=== PATIENT | male | born 1975 | race Caucasian/White ===

== ENCOUNTER 2019-10-30 10:30 | Emergency (ER) | payer SELFPAY ==
[~2019-10-30] VITALS: Wt 108.9 kg
[~2019-10-30 10:30] MED LIST: AMOXICILLIN500 MG PO; ANAPROX DS550 MG PO; ANUSOL-HC25 MG RC; CATAFLAM50 MG PO; CIPROFLOXACIN500 MG PO; CLARITIN10 MG PO; CLEOCIN HCL150 MG PO; CLEOCIN150 MG; DAYPRO600 M1 PO; EPI EZ PEN1 MG/ML IM; Fioricet 325 MG1 TAB PO; KEFLEX500 MG PO; LOMOTIL 0.025 M1 TAB PO; MEDROL DOSEPAK4 MG PO; MOTRIN800 MG PO; NKHM; PENICILLIN VK500 MG PO; SEPTRA DS 800 M1 TAB PO; SKELAXIN800 MG PO; TOBRADEX 0.1%-0.5 ML OPH; TRAMADOL HCL50 MG PO; ULTRAM50 MG PO; VICODIN 5/500 505 MG PO; VICODIN ES 7501 TAB PO; ZITHROMAX Z PA250 MG PO
[2019-10-30 10:54] VITALS: BP 183/84
[2019-10-30 11:47] LABS: HEMATOCRIT 45.7 % (42.0-52.0); MEAN CORPUSCULAR HGB 27.3 pg (27.0-31.0); MEAN CORPUSCULAR HGB CONC 33.3 g/dl (33.0-37.0); MEAN PLATELET VOLUME 9.9 fl (9.6-12.3); PLATELET COUNT AUTOMATED 341 10*3/uL (130-400); RED BLOOD COUNT 5.57 10*6/uL (4.50-5.90); RED CELL DISTRI WIDTH 12.8 % (0-14.5)
[2019-10-30 11:56] LABS: ACT PARTIAL THROMBO TIME 27.8 SECONDS (20.0-32.1); INTERNATIONAL NORM RATIO 0.9 (2.0-3.5)
[2019-10-30 12:03] LABS: ALBUMIN 3.6 gm/dl (3.1-4.5); ALKALINE PHOSPHATASE 81 U/L (45-117); BUN 9 mg/dl (7-24); CHLORIDE 105 mmol/L (98-107); CREATININE 1.02 mg/dL (0.70-1.30); LIPASE 61 U/L (73-393); SGOT/AST 21 IU/L (3-35); SGPT/ALT 31 U/L (12-78); SODIUM 137 mmol/L (136-145); TOTAL PROTEIN 7.8 gm/dL (6.4-8.2)
[2019-10-30 12:06] LABS: TROPONIN I < 0.015 ng/ml (<0.045)
[2019-10-30 12:11] LABS: PLATELET SUFFICIENCY NORMAL (NORMAL); TOTAL CELLS COUNTED 100 #CELLS
[2019-10-30] MEDS ORDERED: ZITHROMAX250 MG PO (17:22)
== END 2019-10-30 17:44 | disposition home or self-care (01) ==
LOC: ED 10:30
PROVIDERS: Emergency Medicine
DX: J02.0 Streptococcal pharyngitis (principal); F17.200 Nicotine dependence, unspecified, uncomplicated

== ENCOUNTER 2022-08-08 11:09 | Emergency (ER) | payer MEDICAID ==
[~2022-08-08] VITALS: Ht 177.8 cm; Wt 117.9 kg
[~2022-08-08 11:09] MED LIST changes: +ZITHROMAX250 MG PO
[2022-08-08 11:48] VITALS: BP 131/93
[2022-08-08 13:01] LABS: BASO # 0.1 10*3/uL (0.0-0.1); BASO % 0.5 % (0.0-1.0); EOS % 0.3 % (1.0-4.0); HEMATOCRIT 50.5 % (42.0-52.0); LYMPH # 3.5 10*3/uL (1.3-4.4); LYMPH % 26.8 % (27.0-41.0); MEAN CELL VOLUME 83.2 fl (80.0-94.0); MEAN CORPUSCULAR HGB CONC 33.7 g/dl (33.0-37.0); MEAN PLATELET VOLUME 10.2 fl (9.6-12.3); MONO # 1.1 10*3/uL (0.1-1.0); MONO % 8.7 % (3.0-9.0); NEUT # 8.2 10*3/uL (2.3-7.9); NEUT % 63.4 % (47.0-73.0); PLATELET COUNT AUTOMATED 306 10*3/uL (130-400); RED BLOOD COUNT 6.07 10*6/uL (4.50-5.90); RED CELL DISTRI WIDTH 12.7 % (0-14.5); WHITE BLOOD COUNT 12.9 10*3/uL (4.8-10.8)
[2022-08-08 13:20] LABS: ALKALINE PHOSPHATASE 56 U/L (46-116); BUN 12 mg/dl (9-23); CHLORIDE 106 mmol/L (98-107); LIPASE 29 U/L (12-53); POTASSIUM 3.3 mmol/L (3.4-5.1); SGPT/ALT 70 U/L (10-49); TOTAL PROTEIN 8.1 gm/dL (6.0-8.0)
[2022-08-08] MEDS ORDERED: ONDANSETRON4 MG SL (16:03)
== END 2022-08-08 16:12 | disposition home or self-care (01) ==
LOC: ED 11:09
PROVIDERS: Physician Assistant
DX: K52.9 Noninfective gastroenteritis and colitis, unspecified (principal); L90.5 Scar conditions and fibrosis of skin

== ENCOUNTER 2022-09-15 16:28 | Emergency (ER) | payer OTHER ==
[~2022-09-15] VITALS: Wt 113.4 kg
[~2022-09-15 16:28] MED LIST changes: +ONDANSETRON4 MG SL
[2022-09-15 17:25] LABS: BASO # 0.1 10*3/uL (0.0-0.1); BASO % 0.7 % (0.0-1.0); EOS # 0.2 10*3/uL (0.0-0.4); EOS % 1.2 % (1.0-4.0); HEMATOCRIT 46.7 % (42.0-52.0); LYMPH # 3.4 10*3/uL (1.3-4.4); LYMPH % 25.4 % (27.0-41.0); MEAN CELL VOLUME 82.2 fl (80.0-94.0); MEAN CORPUSCULAR HGB 28.7 pg (27.0-31.0); MEAN CORPUSCULAR HGB CONC 34.9 g/dl (33.0-37.0); MEAN PLATELET VOLUME 10.2 fl (9.6-12.3); MONO # 1.1 10*3/uL (0.1-1.0); MONO % 7.9 % (3.0-9.0); NEUT # 8.6 10*3/uL (2.3-7.9); NEUT % 64.5 % (47.0-73.0); PLATELET COUNT AUTOMATED 274 10*3/uL (130-400); RED BLOOD COUNT 5.68 10*6/uL (4.50-5.90); RED CELL DISTRI WIDTH 12.5 % (0-14.5); WHITE BLOOD COUNT 13.4 10*3/uL (4.8-10.8)
[2022-09-15 17:44] LABS: ALKALINE PHOSPHATASE 59 U/L (46-116); BUN 7 mg/dl (9-23); CHLORIDE 106 mmol/L (98-107); POTASSIUM 3.9 mmol/L (3.4-5.1); SGPT/ALT 113 U/L (10-49); TOTAL PROTEIN 7.4 gm/dL (6.0-8.0)
[2022-09-15 18:05] VITALS: BP 149/88
[2022-09-15] MEDS ORDERED: OMEPRAZOLE40 MG PO (18:56)
== END 2022-09-15 18:59 | disposition home or self-care (01) ==
LOC: ED 16:28
PROVIDERS: Student in an Organized Health Care Education/Training Program
DX: R10.13 Epigastric pain (principal); Z98.890 Other specified postprocedural states

== ENCOUNTER 2022-10-22 19:20 | Emergency (ER) | payer OTHER ==
[~2022-10-22] VITALS: Wt 73.0 kg
[~2022-10-22 19:20] MED LIST changes: +AMLODIPINE BESYL5 MG PO; +OMEPRAZOLE40 MG PO
[2022-10-22 20:07] LABS: BASO # 0.1 10*3/uL (0.0-0.1); BASO % 0.4 % (0.0-1.0); EOS # 0.1 10*3/uL (0.0-0.4); EOS % 0.8 % (1.0-4.0); HEMATOCRIT 50.8 % (42.0-52.0); LYMPH # 3.5 10*3/uL (1.3-4.4); LYMPH % 23.8 % (27.0-41.0); MEAN CELL VOLUME 85.1 fl (80.0-94.0); MEAN CORPUSCULAR HGB 28.3 pg (27.0-31.0); MEAN CORPUSCULAR HGB CONC 33.3 g/dl (33.0-37.0); MONO # 1.1 10*3/uL (0.1-1.0); MONO % 7.7 % (3.0-9.0); PLATELET COUNT AUTOMATED 342 10*3/uL (130-400); RED BLOOD COUNT 5.97 10*6/uL (4.50-5.90); RED CELL DISTRI WIDTH 12.8 % (0-14.5); WHITE BLOOD COUNT 14.9 10*3/uL (4.8-10.8)
[2022-10-22 20:18] LABS: ACT PARTIAL THROMBO TIME 26.8 SECONDS (20.0-32.1)
[2022-10-22 20:29] LABS: ALKALINE PHOSPHATASE 74 U/L (46-116); BUN 10 mg/dl (9-23); CHLORIDE 105 mmol/L (98-107); POTASSIUM 3.8 mmol/L (3.4-5.1); SGPT/ALT 114 U/L (10-49); TOTAL PROTEIN 7.9 gm/dL (6.0-8.0)
[2022-10-22 23:36] VITALS: BP 134/95
== END 2022-10-23 01:05 | disposition home or self-care (01) ==
LOC: ED 19:20
PROVIDERS: Emergency Medicine
DX: R06.02 Shortness of breath (principal); D72.89 Other specified disorders of white blood cells; R74.01 Elevation of levels of liver transaminase levels; I10 Essential (primary) hypertension; E78.5 Hyperlipidemia, unspecified; F17.220 Nicotine dependence, chewing tobacco, uncomplicated; Z79.899 Other long term (current) drug therapy

== ENCOUNTER 2023-08-11 09:40 | Emergency (ER) | payer OTHER ==
[~2023-08-11] VITALS: Ht 180.3 cm; Wt 117.9 kg
[2023-08-11 09:47] VITALS: BP 159/88
[2023-08-11] MEDS ORDERED: Tdap Vaccine 0.5 ML SYR (Adult Vaccine) IM ONE (10:00)
[2023-08-11] MEDS ORDERED: CEPHALEXIN500 M1 PO (10:42)
== END 2023-08-11 11:06 | disposition home or self-care (01) ==
LOC: ED 09:40
DX: S01.81XA Laceration without foreign body of other part of head, initial encounter (principal); Z98.890 Other specified postprocedural states; F17.220 Nicotine dependence, chewing tobacco, uncomplicated; W31.89XA Contact with other specified machinery, initial encounter; Y93.89 Activity, other specified; Y92.89 Other specified places as the place of occurrence of the external cause; Y99.0 Civilian activity done for income or pay

== ENCOUNTER 2024-01-18 06:21 | Observation (INO) | payer SELFPAY ==
[~2024-01-18] VITALS: Ht 180.3 cm; Wt 111.7 kg
[2024-01-18] VITALS (8 sets, daily range): BP systolic 117–197; BP diastolic 69–125
[~2024-01-18 06:21] MED LIST changes: +CEPHALEXIN500 M1 PO
[2024-01-18 06:50] LABS: BASO # 0.1 10*3/uL (0.0-0.1); BASO % 0.7 % (0.0-1.0); EOS # 0.2 10*3/uL (0.0-0.4); EOS % 1.4 % (1.0-4.0); HEMATOCRIT 49.5 % (42.0-52.0); LYMPH % 26.7 % (27.0-41.0); MEAN CELL VOLUME 81.8 fl (80.0-94.0); MEAN CORPUSCULAR HGB 27.6 pg (27.0-31.0); MEAN CORPUSCULAR HGB CONC 33.7 g/dl (33.0-37.0); MEAN PLATELET VOLUME 9.7 fl (9.6-12.3); MONO % 9.1 % (3.0-9.0); NEUT # 6.8 10*3/uL (2.3-7.9); NEUT % 61.6 % (47.0-73.0); PLATELET COUNT AUTOMATED 280 10*3/uL (130-400); RED BLOOD COUNT 6.05 10*6/uL (4.50-5.90); RED CELL DISTRI WIDTH 12.9 % (0-14.5); WHITE BLOOD COUNT 11.1 10*3/uL (4.8-10.8)
[2024-01-18 07:26] LABS: ALKALINE PHOSPHATASE 96 U/L (46-116); BUN 10 mg/dl (9-23); CHLORIDE 107 mmol/L (98-107); POTASSIUM 3.9 mmol/L (3.4-5.1); SGPT/ALT 117 U/L (5-49); TOTAL PROTEIN 7.7 gm/dL (6.0-8.0)
[2024-01-18] MEDS ORDERED: ASPIRIN, CHEWABLE 81 MG TAB PO ONE (08:05)
[2024-01-18] MEDS ORDERED: BISACODYL 10 MG SUPP R PRN (08:35)
[2024-01-18] MEDS ORDERED: ACETAMINOPHEN 650 MG SUPP R PRN (08:35)
[2024-01-18] MEDS ORDERED: BISACODYL 5 MG TAB PO PRN (08:35)
[2024-01-18] MEDS ORDERED: Acetaminophen/Hydrocodone 5 MG/325 MG TABLET PO PRN (08:35)
[2024-01-18] MEDS ORDERED: Magnesium Hydroxide 30 ML UDC PO PRN (08:35)
[2024-01-18] MEDS ORDERED: Ondansetron Hydrochloride 4 MG/2 ML VIAL IV PRN (08:35)
[2024-01-18] MEDS ORDERED: ACETAMINOPHEN 325 MG TAB PO PRN (08:35)
[2024-01-18 08:49] LABS: ACT PARTIAL THROMBO TIME 26.4 SECONDS (20.0-32.1)
[2024-01-18] MEDS ORDERED: Enoxaparin Sodium 40 MG/0.4 ML SYR SC SCH (10:00)
[2024-01-18] MEDS ORDERED: ATORVASTATIN CALCIUM 40 MG TABLET PO SCH (11:50)
[2024-01-18] MEDS ORDERED: ASPIRIN 325 MG TAB PO ONE (11:50)
[2024-01-18 12:09] LABS: URINE AMPHETAMINES Negative (1000ng/ml); URINE BARBITURATES Negative (200ng/ml); URINE BENZODIAZEPINES Negative (200ng/ml); URINE CANNABINOIDS (THC) Negative (50ng/ml); URINE COCAINE Negative (300ng/ml); URINE METHADONE Negative (300ng/ml); URINE OPIATES Negative (300ng/ml); URINE PHENCYCLIDINE Negative (25ng/ml)
[2024-01-18] MEDS ORDERED: PERFLUTREN PROTEIN-A MICROSPHR 3 ML VIAL IV ONE (15:38)
[2024-01-18] MEDS ORDERED: Technetium Tc 99M Tetrofosmi 0.23 MG KIT IJ SCH (15:50)
[2024-01-18] MEDS ORDERED: Metoprolol Tartrate 25 MG TAB PO SCH (22:00)
[2024-01-19 00:30] VITALS: BP 115/72
[2024-01-19] MEDS ORDERED: Regadenoson 0.4 MG/5 ML SYR IV ONE ×2 (06:16→10:30)
[2024-01-19 07:02] LABS: HEMATOCRIT 50.6 % (42.0-52.0); MEAN CELL VOLUME 81.9 fl (80.0-94.0); MEAN CORPUSCULAR HGB 27.5 pg (27.0-31.0); MEAN CORPUSCULAR HGB CONC 33.6 g/dl (33.0-37.0); MEAN PLATELET VOLUME 10.8 fl (9.6-12.3); PLATELET COUNT AUTOMATED 238 10*3/uL (130-400); RED BLOOD COUNT 6.18 10*6/uL (4.50-5.90); RED CELL DISTRI WIDTH 13.1 % (0-14.5); WHITE BLOOD COUNT 10.8 10*3/uL (4.8-10.8)
[2024-01-19 07:11] LABS: ACT PARTIAL THROMBO TIME 24.8 SECONDS (20.0-32.1)
[2024-01-19 07:44] LABS: MANUAL DIFF REFLEX YES
[2024-01-19 07:46] LABS: PLATELET SUFFICIENCY NORMAL (NORMAL); TOTAL CELLS COUNTED 100 #CELLS
[2024-01-19 08:04] LABS: ALKALINE PHOSPHATASE 82 U/L (46-116); BUN 9 mg/dl (9-23); CHLORIDE 106 mmol/L (98-107); CHOLESTEROL 104 mg/dL (<200); LDL CHOLESTEROL 63 mg/dL (9-159); POTASSIUM 3.9 mmol/L (3.4-5.1); SGPT/ALT 112 U/L (5-49); TOTAL PROTEIN 7.5 gm/dL (6.0-8.0); TRIGLYCERIDES 97 mg/dl (<150)
[2024-01-19 08:27] LABS: VITAMIN D, 25-HYDROXY 60.6 ng/mL (30-100)
[2024-01-19] MEDS ORDERED: Losartan Potassium 25 MG TAB PO SCH (10:00)
[2024-01-19] MEDS ORDERED: ASPIRIN ENTERIC COATED 81 MG TAB PO SCH (10:00)
[2024-01-19 12:00] VITALS: BP 149/100
[2024-01-19 16:04] VITALS: BP 139/93
[2024-01-19 17:25] VITALS: BP 134/80
[2024-01-19 20:00] VITALS: BP 154/88
[2024-01-19] MEDS ORDERED: Melatonin 5 MG TABLET PO ONE (21:05)
[2024-01-20 05:37] LABS: BUN 10 mg/dl (9-23); CHLORIDE 106 mmol/L (98-107); POTASSIUM 3.8 mmol/L (3.4-5.1)
[2024-01-20 06:01] LABS: BASO # 0.1 10*3/uL (0.0-0.1); BASO % 0.6 % (0.0-1.0); EOS # 0.2 10*3/uL (0.0-0.4); EOS % 1.5 % (1.0-4.0); HEMATOCRIT 48.8 % (42.0-52.0); LYMPH # 3.2 10*3/uL (1.3-4.4); LYMPH % 26.7 % (27.0-41.0); MEAN CELL VOLUME 82.4 fl (80.0-94.0); MEAN CORPUSCULAR HGB 27.7 pg (27.0-31.0); MEAN CORPUSCULAR HGB CONC 33.6 g/dl (33.0-37.0); MEAN PLATELET VOLUME 10.1 fl (9.6-12.3); MONO # 0.9 10*3/uL (0.1-1.0); MONO % 7.8 % (3.0-9.0); NEUT # 7.6 10*3/uL (2.3-7.9); NEUT % 63.1 % (47.0-73.0); PLATELET COUNT AUTOMATED 270 10*3/uL (130-400); RED BLOOD COUNT 5.92 10*6/uL (4.50-5.90); RED CELL DISTRI WIDTH 12.7 % (0-14.5)
[2024-01-20 08:00] VITALS: BP 148/79
[2024-01-20] MEDS ORDERED: ATORVASTATIN CA40 M1 PO (09:15)
[2024-01-20] MEDS ORDERED: LOSARTAN POTASS25 M1 PO (09:15)
[2024-01-20] MEDS ORDERED: ASPIRIN ADULT L81 M2 PO (09:15)
[2024-01-20] MEDS ORDERED: LOPRESSOR25 MG PO (09:15)
== END 2024-01-20 10:06 | disposition short-term general hospital (02) ==
LOC: ED 06:21 → EDHOLD 08:06 → 4E 08:06 → EDHOLD 08:06 → 4E 01-19 17:11
PROVIDERS: Emergency Medicine; Internal Medicine; Student in an Organized Health Care Education/Training Program; ADMIT Internal Medicine; ATTEND Internal Medicine
DX: R06.02 Shortness of breath (principal); R07.89 Other chest pain; I10 Essential (primary) hypertension; R73.9 Hyperglycemia, unspecified; E66.9 Obesity, unspecified; R00.0 Tachycardia, unspecified; D72.829 Elevated white blood cell count, unspecified; D75.1 Secondary polycythemia; Z79.899 Other long term (current) drug therapy; Z68.34 Body mass index [BMI] 34.0-34.9, adult

== ENCOUNTER 2024-01-23 11:28 | Emergency (ER) | payer SELFPAY ==
[~2024-01-23] VITALS: Ht 180.3 cm; Wt 113.4 kg
[~2024-01-23 11:28] MED LIST changes: +ASPIRIN ADULT L81 M2 PO; +ATORVASTATIN CA40 M1 PO; +LOPRESSOR25 MG PO; +LOSARTAN POTASS25 M1 PO
[2024-01-23 12:02] VITALS: BP 160/110
[2024-01-23 12:52] LABS: BASO # 0.1 10*3/uL (0.0-0.1); BASO % 0.6 % (0.0-1.0); EOS # 0.1 10*3/uL (0.0-0.4); EOS % 0.8 % (1.0-4.0); HEMATOCRIT 54.5 % (42.0-52.0); LYMPH # 3.3 10*3/uL (1.3-4.4); LYMPH % 20.8 % (27.0-41.0); MEAN CELL VOLUME 82.5 fl (80.0-94.0); MEAN CORPUSCULAR HGB 27.2 pg (27.0-31.0); MONO # 1.3 10*3/uL (0.1-1.0); MONO % 8.3 % (3.0-9.0); NEUT % 68.9 % (47.0-73.0); PLATELET COUNT AUTOMATED 321 10*3/uL (130-400); RED BLOOD COUNT 6.61 10*6/uL (4.50-5.90); RED CELL DISTRI WIDTH 13.4 % (0-14.5)
[2024-01-23 13:05] LABS: ACT PARTIAL THROMBO TIME 25.3 SECONDS (20.0-32.1)
[2024-01-23 13:13] LABS: ALKALINE PHOSPHATASE 87 U/L (46-116); BUN 9 mg/dl (9-23); CHLORIDE 106 mmol/L (98-107); POTASSIUM 4.4 mmol/L (3.4-5.1); SGPT/ALT 87 U/L (5-49); TOTAL PROTEIN 8.1 gm/dL (6.0-8.0)
== END 2024-01-23 15:45 | disposition home or self-care (01) ==
LOC: ED 11:28
PROVIDERS: Emergency Medicine
DX: R06.02 Shortness of breath (principal); I10 Essential (primary) hypertension; F17.220 Nicotine dependence, chewing tobacco, uncomplicated

== ENCOUNTER 2024-01-24 04:24 | Emergency (ER) | payer SELFPAY ==
[~2024-01-24] VITALS: Wt 128.8 kg
[2024-01-24] MEDS ORDERED: SODIUM CHLORIDE 0.9% 1,000 ML IV ONE (05:20)
[2024-01-24] MEDS ORDERED: Ceftriaxone Sodium 1 GM/10 ML SYR IV ONE (05:20)
[2024-01-24 05:21] LABS: ALKALINE PHOSPHATASE 101 U/L (46-116); BUN 15 mg/dl (9-23); CHLORIDE 105 mmol/L (98-107); ETHYL ALCOHOL 3.4 mg/dl (<3); POTASSIUM 4.3 mmol/L (3.4-5.1); SGPT/ALT 71 U/L (5-49); TOTAL PROTEIN 7.2 gm/dL (6.0-8.0)
[2024-01-24 05:58] VITALS: BP 136/93
[2024-01-24 06:04] LABS: HEMATOCRIT 45.6 % (42.0-52.0); MEAN CELL VOLUME 82.6 fl (80.0-94.0); MEAN CORPUSCULAR HGB 27.9 pg (27.0-31.0); MEAN CORPUSCULAR HGB CONC 33.8 g/dl (33.0-37.0); MEAN PLATELET VOLUME 10.7 fl (9.6-12.3); PLATELET COUNT AUTOMATED 392 10*3/uL (130-400); RED BLOOD COUNT 5.52 10*6/uL (4.50-5.90); RED CELL DISTRI WIDTH 12.8 % (0-14.5); WHITE BLOOD COUNT 22.5 10*3/uL (4.8-10.8)
[2024-01-24 06:05] VITALS: BP 130/89
[2024-01-24 06:06] LABS: MANUAL DIFF REFLEX YES
[2024-01-24 06:11] VITALS: BP 140/93
[2024-01-24 06:32] LABS: BURR CELLS FEW; HOWELL-JOLLY BODIES FEW; PLATELET SUFFICIENCY NORMAL (NORMAL); POLYCHROMASIA SLIGHT; ROULEAUX SLIGHT; TOTAL CELLS COUNTED 100 #CELLS
== END 2024-01-24 06:32 | disposition short-term general hospital (02) ==
LOC: ED 04:24
PROVIDERS: Internal Medicine
DX: S36.113A Laceration of liver, unspecified degree, initial encounter (principal); S31.119A Laceration without foreign body of abdominal wall, unspecified quadrant without penetration into peritoneal cavity, initial encounter; S31.139A Puncture wound of abdominal wall without foreign body, unspecified quadrant without penetration into peritoneal cavity, initial encounter; R79.89 Other specified abnormal findings of blood chemistry; I10 Essential (primary) hypertension; F17.220 Nicotine dependence, chewing tobacco, uncomplicated; Z98.890 Other specified postprocedural states; Z79.899 Other long term (current) drug therapy; X78.1XXA Intentional self-harm by knife, initial encounter; Y93.89 Activity, other specified; Y92.009 Unspecified place in unspecified non-institutional (private) residence as the place of occurrence of the external cause; Y99.8 Other external cause status

== ENCOUNTER 2024-02-18 00:48 | Emergency (ER) | payer SELFPAY ==
[~2024-02-18] VITALS: Ht 180.3 cm; Wt 133.8 kg
[2024-02-18 01:00] VITALS: BP 154/94
[2024-02-18] MEDS ORDERED: ARIPIPRAZOLE10 MG PO (01:04)
[2024-02-18] MEDS ORDERED: SUBOXONE 4 MG-1 EACH SL (01:05)
[2024-02-18 01:30] LABS: BASO # 0.1 10*3/uL (0.0-0.1); BASO % 0.6 % (0.0-1.0); EOS # 0.4 10*3/uL (0.0-0.4); EOS % 3.2 % (1.0-4.0); HEMATOCRIT 39.6 % (42.0-52.0); LYMPH # 3.4 10*3/uL (1.3-4.4); LYMPH % 27.5 % (27.0-41.0); MEAN CELL VOLUME 82.7 fl (80.0-94.0); MEAN CORPUSCULAR HGB 26.5 pg (27.0-31.0); MEAN CORPUSCULAR HGB CONC 32.1 g/dl (33.0-37.0); MEAN PLATELET VOLUME 9.6 fl (9.6-12.3); MONO # 1.3 10*3/uL (0.1-1.0); MONO % 10.1 % (3.0-9.0); NEUT # 7.2 10*3/uL (2.3-7.9); NEUT % 58.3 % (47.0-73.0); PLATELET COUNT AUTOMATED 295 10*3/uL (130-400); RED BLOOD COUNT 4.79 10*6/uL (4.50-5.90); RED CELL DISTRI WIDTH 13.3 % (0-14.5); WHITE BLOOD COUNT 12.4 10*3/uL (4.8-10.8)
[2024-02-18 01:48] LABS: BUN 11 mg/dl (9-23); CHLORIDE 105 mmol/L (98-107); POTASSIUM 4.1 mmol/L (3.4-5.1)
[2024-02-18] MEDS ORDERED: LORazepam 0.5 MG TAB PO ONE (02:20)
[2024-02-18] MEDS ORDERED: VISTARIL25 M2 PO (03:50)
[2024-02-18] MEDS ORDERED: VIBRAMYCIN100 MG PO (03:50)
== END 2024-02-18 04:00 | disposition home or self-care (01) ==
LOC: ED 00:48
PROVIDERS: Internal Medicine
DX: F41.9 Anxiety disorder, unspecified (principal); R06.02 Shortness of breath; F17.220 Nicotine dependence, chewing tobacco, uncomplicated; Z79.899 Other long term (current) drug therapy

== ENCOUNTER 2024-02-19 07:52 | Emergency (ER) | payer SELFPAY ==
[~2024-02-19] VITALS: Ht 177.8 cm; Wt 133.8 kg
[~2024-02-19 07:52] MED LIST changes: +ARIPIPRAZOLE10 MG PO; +SUBOXONE 4 MG-1 EACH SL; +VIBRAMYCIN100 MG PO; +VISTARIL25 M2 PO
[2024-02-19 07:55] VITALS: BP 160/85
[2024-02-19] MEDS ORDERED: Doxycycline Hyclate 100 MG CAP PO ONE ×2 (08:30→09:30)
[2024-02-19] MEDS ORDERED: LORazepam 0.5 MG TAB PO ONE (08:30)
== END 2024-02-19 09:39 | disposition home or self-care (01) ==
LOC: ED 07:52
DX: B34.9 Viral infection, unspecified (principal); Z20.822 Contact with and (suspected) exposure to COVID-19; J02.9 Acute pharyngitis, unspecified; T81.49XA Infection following a procedure, other surgical site, initial encounter; I10 Essential (primary) hypertension; F17.220 Nicotine dependence, chewing tobacco, uncomplicated; Z98.890 Other specified postprocedural states

== ENCOUNTER 2024-03-15 19:05 | Emergency (ER) | payer MEDICAID ==
[~2024-03-15] VITALS: Ht 180.3 cm; Wt 127.0 kg
[2024-03-15 19:30] VITALS: BP 107/64
[2024-03-15] MEDS ORDERED: LORazepam 1 MG TAB PO ONE (19:40)
== END 2024-03-15 21:02 | disposition home or self-care (01) ==
LOC: ED 19:05
DX: F41.9 Anxiety disorder, unspecified (principal); I10 Essential (primary) hypertension; F17.220 Nicotine dependence, chewing tobacco, uncomplicated; Z98.890 Other specified postprocedural states

== ENCOUNTER 2024-03-17 18:25 | Emergency (ER) | payer MEDICAID ==
[~2024-03-17] VITALS: Wt 127.0 kg
[2024-03-17 18:50] VITALS: BP 129/68
[2024-03-17] MEDS ORDERED: LORazepam 1 MG TAB PO ONE (19:10)
[2024-03-17] MEDS ORDERED: HYDROXYZINE HCL25 MG PO (20:06)
[2024-03-17] MEDS ORDERED: hydrOXYzine pamoate 25 MG CAP PO ONE (20:10)
== END 2024-03-17 21:52 | disposition home or self-care (01) ==
LOC: ED 18:25
DX: F41.1 Generalized anxiety disorder (principal); I10 Essential (primary) hypertension; E66.9 Obesity, unspecified; F17.220 Nicotine dependence, chewing tobacco, uncomplicated; Z68.30 Body mass index [BMI] 30.0-30.9, adult

== ENCOUNTER 2024-03-24 13:39 | Emergency (ER) | payer MEDICAID ==
[~2024-03-24] VITALS: Ht 180.3 cm; Wt 127.0 kg
[~2024-03-24 13:39] MED LIST changes: +HYDROXYZINE HCL25 MG PO
[2024-03-24 14:09] VITALS: BP 130/84
[2024-03-24] MEDS ORDERED: SODIUM CHLORIDE 0.9% 1,000 ML IV ONE (14:25)
[2024-03-24] MEDS ORDERED: LORazepam 2 MG/ML VIAL IV ONE (14:25)
[2024-03-24 14:41] LABS: BASO # 0.1 10*3/uL (0.0-0.1); BASO % 0.8 % (0.0-1.0); EOS # 0.3 10*3/uL (0.0-0.4); EOS % 2.9 % (1.0-4.0); HEMATOCRIT 45.8 % (42.0-52.0); MEAN CELL VOLUME 79.2 fl (80.0-94.0); MEAN CORPUSCULAR HGB 25.1 pg (27.0-31.0); MEAN CORPUSCULAR HGB CONC 31.7 g/dl (33.0-37.0); MEAN PLATELET VOLUME 9.2 fl (9.6-12.3); MONO # 0.9 10*3/uL (0.1-1.0); MONO % 9.4 % (3.0-9.0); NEUT # 5.3 10*3/uL (2.3-7.9); NEUT % 53.3 % (47.0-73.0); PLATELET COUNT AUTOMATED 292 10*3/uL (130-400); RED BLOOD COUNT 5.78 10*6/uL (4.50-5.90)
[2024-03-24 14:52] LABS: URINE AMPHETAMINES Negative (1000ng/ml); URINE BARBITURATES Negative (200ng/ml); URINE BENZODIAZEPINES Negative (200ng/ml); URINE CANNABINOIDS (THC) Negative (50ng/ml); URINE COCAINE Negative (300ng/ml); URINE METHADONE Negative (300ng/ml); URINE OPIATES Negative (300ng/ml); URINE PHENCYCLIDINE Negative (25ng/ml)
[2024-03-24 15:00] LABS: BUN 7 mg/dl (9-23); CHLORIDE 106 mmol/L (98-107); POTASSIUM 4.1 mmol/L (3.4-5.1)
== END 2024-03-24 16:24 | disposition home or self-care (01) ==
LOC: ED 13:39
PROVIDERS: Emergency Medicine
DX: R25.1 Tremor, unspecified (principal); I10 Essential (primary) hypertension; F41.9 Anxiety disorder, unspecified; F17.220 Nicotine dependence, chewing tobacco, uncomplicated; Z98.890 Other specified postprocedural states; Z79.899 Other long term (current) drug therapy; Z79.82 Long term (current) use of aspirin

== ENCOUNTER 2024-04-02 03:46 | Emergency (ER) | payer MEDICAID ==
[~2024-04-02] VITALS: Ht 172.7 cm; Wt 99.8 kg
[2024-04-02] MEDS ORDERED: LORazepam 0.5 MG TAB PO ONE (04:00)
[2024-04-02] MEDS ORDERED: hydrOXYzine pamoate 25 MG CAP PO ONE (04:05)
[2024-04-02 05:19] LABS: URINE AMPHETAMINES Negative (1000ng/ml); URINE BARBITURATES Negative (200ng/ml); URINE BENZODIAZEPINES Negative (200ng/ml); URINE CANNABINOIDS (THC) Negative (50ng/ml); URINE COCAINE Negative (300ng/ml); URINE METHADONE Negative (300ng/ml); URINE OPIATES Negative (300ng/ml); URINE PHENCYCLIDINE Negative (25ng/ml)
[2024-04-02 05:23] VITALS: BP 128/67
== END 2024-04-02 05:30 | disposition home or self-care (01) ==
LOC: ED 03:46
PROVIDERS: Internal Medicine
DX: F41.9 Anxiety disorder, unspecified (principal); I10 Essential (primary) hypertension; R25.1 Tremor, unspecified; F17.220 Nicotine dependence, chewing tobacco, uncomplicated; Z98.890 Other specified postprocedural states; Z79.899 Other long term (current) drug therapy